=== PATIENT | female | born 2000 | race African-American/Black ===

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

== ENCOUNTER 2025-05-17 02:12 | Emergency (ER) | payer OTHER ==
[2025-05-17] MEDS ORDERED: Ondansetron PF 4 MG/2 ML Vial ONE (02:31)
[2025-05-17 02:45] LABS: #Basophils 0.07 10x3/uL (0.0-0.2); #Eosinophils 0.05 10x3/uL (0.0-0.5); #Monocytes 0.53 10x3/uL (0.0-1.1); #Neutrophils 6.76 10x3/uL (1.5-8.4); %Basophils 0.8 % (0.0-2.0); %Eosinophils 0.5 % (0.0-6.0); %Lymphocytes 19.5 % (18.0-47.0); %Monocytes 5.7 % (0.0-10.0); %Neutrophils 73.1 % (40.0-75.0); Hematocrit 37.4 % (34.9-44.5); Hemoglobin 12.7 g/dL (12.0-15.5); Mean Corpuscular Hemoglobin 31.1 pg (27.0-33.0); Mean Corpuscular Volume 91.4 fL (81.6-98.3); Platelet Count 243 10x3/uL (150-450); Red Blood Cell (RBC) Count 4.09 10x6/uL (3.90-5.03); White Blood Cell (WBC) Count 9.25 10x3/uL (3.5-10.5)
[2025-05-17 02:58] LABS: BHCG - Serum Negative (NEGATIVE); Pregs Control Background? CLEAR/WHITE (CLR/WHITE); Pregs Control Bar Appear? YES (CONTROL BAR)
[2025-05-17 03:04] LABS: ALT (SGPT) 10 U/L (Less than 34); AST (SGOT) 19 U/L (11-34); Albumin 4.7 g/dL (3.1-4.5); Alkaline Phosphatase 59 U/L (40-110); Anion Gap 13 mmol/L (10-20); BUN (Urea Nitrogen) 9 mg/dL (7.0-18.7); Bilirubin, Total 0.8 mg/dL (0.3-1.2); Calc. Creatinine Clearance 0 mL/min (70-130); Calcium 9.8 mg/dL (7.8-10.44); Carbon Dioxide 22 mmol/L (22-29); Chloride 110 mmol/L (98-107); Globulin 2.8 g/dL (2.4-3.5); Glucose 95 mg/dL (70-105); Potassium 3.5 mmol/L (3.5-5.1); Sodium 141 mmol/L (136-145)
[2025-05-17] MEDS ORDERED: diphenhydrAMINE 50 MG/ML VIAL ONE (03:42)
[2025-05-17] MEDS ORDERED: Prochlorperazine 10 MG/2 ML VIAL ONE (03:42)
== END 2025-05-17 04:11 | disposition home or self-care (01) ==
LOC: CSHERS 02:12
DX: K52.9 Noninfective gastroenteritis and colitis, unspecified (principal); E86.0 Dehydration
CPT/HCPCS: 74176; 80053; 84703; 85025; 96374; 96375; J0780; J1200; J2405